=== PATIENT | male | born 1980 | race Caucasian/White ===

== ENCOUNTER 2018-10-13 07:29 | Emergency (ER) | payer MEDICAID ==
[~2018-10-13] VITALS: Ht 185.4 cm; Wt 94.3 kg
[2018-10-13 07:35] VITALS: Ht 185.4 cm; Wt 94.3 kg
[2018-10-13 08:55] VITALS: BP 114/80
== END 2018-10-13 08:55 | disposition home or self-care (01) ==
LOC: ED 07:29
DX: F41.0 Panic disorder [episodic paroxysmal anxiety] (principal); F15.10 Other stimulant abuse, uncomplicated; J45.909 Unspecified asthma, uncomplicated; F17.210 Nicotine dependence, cigarettes, uncomplicated
CPT/HCPCS: 99406